=== PATIENT | female | born 1985 ===

== ENCOUNTER 2018-01-23 01:20 | Inpatient (IN) | payer MEDICAID ==
[2018-01-23 01:49] VITALS: BMI 24.9
[2018-01-23] MEDS ORDERED: Lactated Ringer's 1,000 ML IV ONE (02:00)
[2018-01-23] MEDS ORDERED: Penicillin G Potassium 5 MU in Dextrose 5% In Water 50 ML IV ONE (02:59)
[2018-01-23] MEDS ORDERED: Lactated Ringer's 1,000 ML IV SCH (03:00)
[2018-01-23] MEDS ORDERED: Penicillin G 5 Million Unit Vial IVPB ONE (03:06)
--- NOTE | 2018-01-23 03:59 | OBHP ---
Datetime: 01/23/2018 03:55 IP Adm Impression: Term, intrauterine IP Admit Plan: Admit to unit Admit Comment, IP Provider: 32 y/o @ 38.6 wks GA limited prental care, late trnasfer to clin ic from c/o ctx every 5 min incresaing intensity and freuency 05/10 . pt dnie sany lof, vb, +FM. OB: x 1 FT uncomplicted FLORAL DEPARTMENT SPECIALIST: dneis PMH: denies PSH: denies FHX: non contribtry MEDS: PNS SHX: negative etoh/tobacc/durgs A/P @ 38.6 wks GA in labor admit to L+D npo, ivf admission labs cont toco adn efm analgesia prn uds Pelvic Type - PN: Adequate Extremities - PN: Normal Abdomen - PN: Normal Back - PN: Normal Breast - PN: Normal Lungs - PN: Normal Heart - PN: Normal Thyroid - PN: Normal Neurologic - PN: Normal HEENT - PN: Normal General - PN: Normal Presentation-Admit: Vertex FHR - Baseline A Provider: 145 Membranes, Provider: Intact Contraction Comments Provider: q 5 min Gestation - Est Wks by US: 38.6 IP Hx Assessment: No Care EGA AdmitDate IP: 38.6 Vital Signs Provider: Reviewed; Within Normal Limits IP Chief Complaint: Uterine contractions NICHD Variability Prov Fetus A: Moderate 6-25bpm FHR Category Provider Fetus A: Category I Dilatation, Provider: 6 Effacement, Provider: 90 Station, Provider: -2 Genitourinary Exam: Normal DTRs - PN: Normal
--- NOTE | 2018-01-23 04:14 | OBADHP ---
Datetime: 01/23/2018 03:55 Admit Comment, IP Provider: 32 y/o @ 38.6 wks [place] limited prental care, late trnasfer to clin ic from c/o ctx every 5 min incresaing intensity and freuency 05/10 . pt dnie sany lof, vb, +FM. OB: x 1 FT uncomplicted WARP CHANGER: dneis PMH: denies PSH: denies FHX: non contribtry MEDS: PNS SHX: negative etoh/tobacc/durgs A/P @ 38.6 wks [place] in labor admit to L+D npo, ivf admission labs cont toco adn efm analgesia prn uds Pelvic Type - PN: Adequate Extremities - PN: Normal Abdomen - PN: Normal Back - PN: Normal Breast - PN: Normal Lungs - PN: Normal Heart - PN: Normal Thyroid - PN: Normal Neurologic - PN: Normal HEENT - PN: Normal General - PN: Normal Presentation-Admit: Vertex FHR - Baseline A Provider: 145 Membranes, Provider: Intact Contraction Comments Provider: q 5 min Gestation - Est Wks by US: 38.6 IP Hx Assessment: No Care Vital Signs Provider: Reviewed; Within Normal Limits IP Chief Complaint: Uterine contractions NICHD Variability Prov Fetus A: Moderate 6-25bpm FHR Category Provider Fetus A: Category I Dilatation, Provider: 6 Effacement, Provider: 90 Station, Provider: -2 Genitourinary Exam: Normal DTRs - PN: Normal EGA AdmitDate IP: 38.6 IP Adm Impression: Term, intrauterine IP Admit Plan: Admit to unit
[2018-01-23] MEDS ORDERED: Benzocaine/Menthol 20%-0.5% Topical Spray (60 ml) TOP PRN (04:53)
[2018-01-23] MEDS ORDERED: Oxycodone/Acetaminophen 5/325 mg Tab PO PRN ×2 (04:53)
[2018-01-23 04:59] LABS: BASO % 0.2 % (0.0-2.0); EOS % 0.5 % (0.0-4.0); HEMOGLOBIN 10.5 g/dL (11.0-16.0); LYMPH % 26.9 % (20.0-40.0); MEAN CELL VOLUME 71.8 fL (81.0-99.0); MEAN CORPUSCULAR HEMOGLOBIN 23.5 pg (27.0-31.0); MEAN CORPUSCULAR HGB CONC 32.8 g/dL (33.0-37.0); MEAN PLATELET VOLUME 10.3 fL (7.2-11.7); MONO # 0.5 K/uL (0.0-0.8); MONO % 6.4 % (0.0-10.0); NEUT # 4.8 K/uL (1.8-7.0); NRBC % 0.1 % (0.0-2.0); RBC 4.48 Mil/uL (3.80-5.20); RED CELL DISTRIBUTION WIDTH 16.7 % (11.5-14.5); WHITE BLOOD COUNT 7.3 K/uL (4.8-10.8)
--- NOTE | 2018-01-23 05:00 | OBDS ---
DELIVERY PERSONNEL Nurse Python Django Developer Certified: N/A Delivery Doctor: Mary Grace Otoole MD Scrub Nurse: N/A Mining Support Worker: Kaila Adames RN Anesthesiologist: N/A Repair Welder: N/A Resident: N/A MATERNAL INFORMATION Delivery Anesthesia: None Medications in Delivery: PITOCIN 20 UNITS IN 1L IV BAG Placenta Cultured: No Maternal Complications: None Provider Comments: pt was fully dilated and pushing. atrumatic, spontaneous delivery of head, nuchal cord x 1 reduced. atruamtic, spontaneous delivery of anterior followed by posterior shoulder followe d by delivery of the body. both oral and nasal passages of the baby were bulb scutioned. umbicilcal c ord clmaped adn cut. baby handed to mother on abdomen with rn assistance. cord blood and cord gases c ollected adn sent x 2. spontaneous delivery of intact placenta with membranes. fundus firm. second d egree perineal lacertion noted and repaired with 2-0 chormic with local anesteheic lidoaince. good he mostaiss, no complicaitns. live female infant agprs 9,9 7lbs 3 ounces ebl 200 ml LABOR SUMMARY EDC: 01/31/2018 00:00 No. Babies in Womb: 1 Attempted: No Labor Anesthesia: None LABOR INFORMATION Onset of Labor: 01/22/2018 22:00 Complete Dilatation: 01/23/2018 04:37 MEMBRANES Membranes Rupture Method: Artificial Rupture of Membranes: 01/23/2018 04:34 Length of Rupture (hrs): 0.10 STAGES OF LABOR Stage 1 hrs: 6 Stage 1 min: 37 Stage 2 hrs: 0 Stage 2 min: 3 Stage 3 hrs: 0 Stage 3 min: 2 Total Time in Labor hrs: 6 Total Time in Labor min: 42 BABY A INFORMATION Delivery Date/Time: 01/23/2018 04:40 Method of Delivery: Vaginal Born in Route : No : N/A Forceps: N/A Vacuum Extraction: N/A Shoulder Dystocia : No SHOULDER DYSTOCIA BABY A Infant Delivery Date/Time: 01/23/2018 04:40 PRESENTATION/POSITION BABY A Presentation: Cephalic Cephalic Presentation: Vertex Breech Presentation: N/A PLACENTA INFORMATION BABY A Placenta Delivery Time : 01/23/2018 04:42 Placenta Method of Delivery: Spontaneous Placenta Status: Delivered SCORES BABY A Heart Rate 1 min: >100 bpm Resp Effort 1 min: Good Cry Reflex Irritability 1 min: Cough or Sneeze or Pulls Away Muscle Tone 1 min: Active Motion Color 1 min: Body Hortense, Extremities Blue Resuscitation Effort 1 min: N/A SCORE 1 MIN: 9 Heart Rate 5 min: >100 bpm Resp Effort 5 min: Good Cry Reflex Irritability 5 min: Cough or Sneeze or Pulls Away Muscle Tone 5 min: Active Motion Color 5 min: Body Hortense, Extremities Blue Resuscitation Effort 5 min: N/A SCORE 5 MIN: 9 INFORMATION BABY A Gestational Age at Delivery: 38.6 Gestational Status: Term Outcome : Liveborn Condition : Stable Infant Sex: Female IDENTIFICATION/MEDS BABY A ID Band Number: [id number] ID Band Location: Left Leg; Left Arm Sensor Applied: Yes Sensor Number: [id number] Sensor Location : Cord Clamp Vitamin K Given : Not Given Erythromycin Given: Not Given WEIGHT/LENGTH BABY A Birthweight (gms): 3265 Weight (lb): 7 Weight (oz): 3 Length Inches: 19.00 Infant Length cms: 48.3 CORD INFORMATION BABY A No. Cord Vessels: 3 Nuchal Cord : Around Neck x1, Loose True Knot: 0 Cord pH Baby Arterial: N/A Banking/Donate Info: N/A Suction: None ASSESSMENT BABY A Infant Complications: None Physical Findings at Delivery: Within Normal Limits Respirations: Appears Normal Emr Implementation Specialist/ALS Called : No Infant Care By: JESSICA CARTWRIGHT Transferred To: Nursery
[2018-01-23 05:01] LABS: SQUAMOUS EPITHIAL 13 /hpf (0-5); URINE BACTERIA RARE (<OCC); URINE BILIRUBIN NEGATIVE (NEGATIVE); URINE CLARITY Hazy (Clear); URINE COLOR Yellow (YELLOW); URINE GLUCOSE (UA) NORMAL (Normal); URINE LEUKOCYTE ESTERASE 3+ Leu/uL (Negative); URINE PROTEIN NEGATIVE (NEGATIVE); URINE UROBILINOGEN NORMAL mg/dL (0.2-1.0)
[2018-01-23 05:12] LABS: URINE BLOOD NEGATIVE (NEGATIVE)
[2018-01-23 05:17] LABS: CALCIUM 9.4 mg/dl (8.6-10.4); GFR AFRICAN-AMERICAN > 60; GFR NON-AFRICAN AMERICAN > 60
[2018-01-23 05:19] LABS: BARBITURATES, UR NEGATIVE (NEGATIVE); BENZODIAZEPINES, UR NEGATIVE (NEGATIVE); OPIATES, UR NEGATIVE (NEGATIVE); PHENCYCLIDINE, UR NEGATIVE (NEGATIVE)
[2018-01-23 05:34] LABS: ALB/GLOB RATIO 1.1 (1.0-2.1); ALBUMIN 3.8 g/dL (3.5-5.0); ALT/SGPT 11 U/L (9-52); AST/SGOT 42 U/L (14-36); BLOOD UREA NITROGEN 5 mg/dL (7-17)
[2018-01-23 05:46] LABS: HEPATITIS B SURFACE AG Negative (NEGATIVE)
[2018-01-23] MEDS: Multiple Vitamins Tab PO SCH (10:03)
--- NOTE | 2018-01-23 15:08 | RAD ---
HISTORY: Positive QuantiFERON COMPARISON: No prior. FINDINGS: LUNGS: No active pulmonary disease. PLEURA: No significant pleural effusion identified, no pneumothorax apparent. CARDIOVASCULAR: Normal. OSSEOUS STRUCTURES: No significant abnormalities. VISUALIZED UPPER ABDOMEN: Normal. OTHER FINDINGS: None. IMPRESSION: No active disease.
[2018-01-23 17:02] LABS: RAPID PLASMA REAGIN NONREACTIVE (NONREACTIVE)
[2018-01-24 08:17] VITALS: O2SAT 100
[2018-01-24 08:27] LABS: BASO % 0.2 % (0.0-2.0); EOS % 0.4 % (0.0-4.0); HEMOGLOBIN 8.7 g/dL (11.0-16.0); LYMPH # 2.5 K/uL (1.0-4.3); LYMPH % 21.8 % (20.0-40.0); MEAN CELL VOLUME 72.3 fL (81.0-99.0); MEAN CORPUSCULAR HEMOGLOBIN 23.9 pg (27.0-31.0); MEAN CORPUSCULAR HGB CONC 33.1 g/dL (33.0-37.0); MEAN PLATELET VOLUME 10.2 fL (7.2-11.7); MONO # 0.6 K/uL (0.0-0.8); MONO % 5.5 % (0.0-10.0); NEUT # 8.3 K/uL (1.8-7.0); NEUT % 72.1 % (50.0-75.0); NRBC % 0.1 % (0.0-2.0); RBC 3.64 Mil/uL (3.80-5.20); RED CELL DISTRIBUTION WIDTH 17.1 % (11.5-14.5)
[2018-01-24 08:36] LABS: WHITE BLOOD COUNT 11.5 K/uL (4.8-10.8)
--- NOTE | 2018-01-24 09:45 | OBPPN ---
Datetime: 01/24/2018 09:36 PP Pain Prov: Within normal limits PP Nausea Prov: Denies PP Flatus Prov: Yes PP BM Prov: No PP Breasts Prov: Normal PP Heart Prov: Normal PP Lungs Prov: Normal PP Abdomen/Uterus Prov: Normal PP Lochia Prov: Normal PP Vulva/Perineum Prov: Normal PP CVA Tenderness Prov: Normal PP Extremities Prov: Normal PP C/S Incision Prov: Not Applicable PP Progress Prov: Normal PP Comments Phys Exam Prov: Abdomen: soft. non distended. Fundus firm, mobile, 1 FB above umbilicus. moderate lochia Extremities: no calf tenderness, cyanosis, edema All other systems reviewed and are negative PP Impression Prov: Normal progression PP Plan Prov: Continue present management PP Progress Note Prov: Patient received in bed, room 454, . Denies dizziness, lighthea dedness, chest pain or palpitaions. Ambulating and voidign without difficuty. P.E.: as above. WD in NAD. Awake, alert, oriented to time, person and place. Pleasant and cooperat annabelle. present - Labs: all negative. H/H trend: 10.5/32.2 to 8.7/26.3. CXR (-) Assessment: PPD#1, 32 y.o. P2, SP at term, limited care. All labs wnl/negati ve. Quantiferon gold (+); CXR (-). Chronic anemia noted - decrease as above. Patient is asymptomatic and hemodynamically stable. Patient is clinically stable. Plan: 1) start iron supplementaiton BID 2) Continue routine post care 3) Anticipate discharge home 01/25/18 Vital Signs Provider PP: Reviewed; Within Normal Limits
[2018-01-24] MEDS: Multiple Vitamins Tab PO SCH (10:07)
--- NOTE | 2018-01-25 07:23 | OBPPN ---
Datetime: 01/25/2018 07:19 PP Pain Prov: Within normal limits PP Nausea Prov: Denies PP Flatus Prov: No PP BM Prov: Yes PP Abdomen/Uterus Prov: Normal PP Lochia Prov: Normal PP Extremities Prov: Normal PP Comments Phys Exam Prov: fudus below umb ext o edema,no cak PP Impression Prov: Normal progression PP Plan Prov: Discharge PP Progress Note Prov: pt was seen at bed side, holli under control,no n/v, tolerating fdeit,voiding,m in lochia ppd#2 s/p dc home no sex motrin prn ferrous sul f/u in 3week Vital Signs Provider PP: Reviewed; Within Normal Limits
[2018-01-25 09:20] VITALS: BP 113/74; PULSE 79; RESP 18; TEMP 97.1
[2018-01-25] MEDS: Multiple Vitamins Tab PO SCH (10:45)
== END 2018-01-25 14:35 | disposition home or self-care (01) | DRG 373 ==
LOC: C.EROB 01:20 → C.4D 01:50 → C.4M 08:00
PROVIDERS: ADMIT Obstetrics & Gynecology; ATTEND Obstetrics & Gynecology
PROC: 10E0XZZ Delivery of Products of Conception, External Approach (ICD-10-PCS; principal; 2018-01-23)
DX: O69.81X0 Labor and delivery complicated by cord around neck, without compression, not applicable or unspecified (principal); O99.02 Anemia complicating childbirth; Z3A.38 38 weeks gestation of pregnancy; Z37.0 Single live birth